=== PATIENT | male | born 1990 | race American Indian/Alaskan Native ===

== ENCOUNTER 2017-10-07 01:16 | Emergency (ER) | payer OTHER ==
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
[2017-10-07] MEDS ORDERED: FUL-GLO OP ONE (03:30)
[2017-10-07] MEDS ORDERED: TYLENOL PO ONE (03:30)
[2017-10-07] MEDS ORDERED: TETRACAINE 0.5% OU ONE (03:30)
[2017-10-07] MEDS ORDERED: BSS OU ONE (03:40)
[2017-10-07 04:28] VITALS: BP 119/83
== END 2017-10-07 04:25 | disposition home or self-care (01) ==
LOC: ED 01:16
DX: S09.90XA Unspecified injury of head, initial encounter (principal); F12.10 Cannabis abuse, uncomplicated; Z87.891 Personal history of nicotine dependence; Y04.8XXA Assault by other bodily force, initial encounter
CPT/HCPCS: 70450; 72125; 93005; 93010; 99283